=== PATIENT | male | born 1980 | race African-American/Black ===

== ENCOUNTER 2020-06-15 13:23 | Emergency (ER) | payer OTHER ==
[~2020-06-15] VITALS: Ht 185.4 cm; Wt 106.6 kg
[~2020-06-15 13:23] MED LIST: DILANTIN100 MG PO; KEFLEX500 MG PO
[2020-06-15 14:12] LABS: ABSOLUTE NEUTROPHILS 11.8 thou/uL (1.4-8.2); BASOPHILS 0.5 % (0.0-2.0); EOSINOPHILS 0.1 % (0.0-3.0); HEMATOCRIT 48.1 % (42.0-52.0); HEMOGLOBIN 16.1 gm/dL (14.0-18.0); LYMPHOCYTES 10.1 % (24.0-44.0); MCHC 33.4 g/dL (28.0-37.0); MCV 95.9 fL (80.0-100.0); MONOCYTES 9.3 % (1.0-8.0); PLATELET COUNT 291 thou/uL (150-400); RBC 5.02 mil/uL (4.50-6.00); RDW 14.7 % (10.5-14.5); WBC 14.8 thou/uL (4.0-11.0)
[2020-06-15 14:16] LABS: URINE BILIRUBIN NEGATIVE (Negative); URINE BLOOD 2+ (Negative); URINE CLARITY CLEAR; URINE COLOR YELLOW; URINE GLUCOSE-RANDOM* NEGATIVE (Negative); URINE KETONES 2+ (Negative); URINE LEUKOCYTES-REFLEX NEGATIVE (Negative); URINE NITRITE-REFLEX NEGATIVE (Negative); URINE PROTEIN (DIPSTICK) 1+ (Negative); URINE SPECIFIC GRAVITY >= 1.030 (1.005-1.035); URINE UROBILINOGEN 0.2 E.U./dl (0.2-1.0)
[2020-06-15 14:18] LABS: CALCIUM 8.9 mg/dL (8.5-10.1); CREATININE 1.6 mg/dL (0.7-1.3); POTASSIUM 3.7 mmol/L (3.5-5.1)
[2020-06-15 14:25] LABS: ALBUMIN 3.7 g/dL (3.4-5.0); TOTAL BILIRUBIN 0.3 mg/dL (0.2-1.0); TOTAL PROTEIN 7.4 g/dL (6.4-8.2)
[2020-06-15 14:25] LABS: AMP/METHAMP Negative (Negative); BARBITURATES Negative (Negative); BENZODIAZEPINES Negative (Negative); COCAINE Negative (Negative); METHADONE Negative (Negative); OPIATES Negative (Negative); PCP Negative (Negative)
[2020-06-15 14:35] LABS: SQUAMOUS 0-3 Few /LPF (0-3)
[2020-06-15 14:36] LABS: HYALINE CASTS 0-3 Few /LPF (None Seen); MUCUS 0-3 Light strn/LPF (None Seen); URINE WBC-REFLEX 0-5 Rare /HPF (0-5)
[2020-06-15 14:37] LABS: BACTERIA-REFLEX 1-9 Few /HPF (None Seen); CRYSTALS None Seen /LPF (None Seen); URINE RBC 3-10 Few /HPF (0-2)
[2020-06-15] MEDS ORDERED: LIDOCAINE VISC100 ML SWISH&SPIT (16:03)
[2020-06-15] MEDS ORDERED: VIMPAT200 MG PO (16:03)
[2020-06-15] MEDS ORDERED: KEPPRA1000 MG PO (16:03)
[2020-06-15 17:30] VITALS: BP 128/82
--- NOTE | 2020-06-17 07:23 | EKG ---
[place] [address] [facility] [place] [address] ELECTROCARDIOGRAM REPORT Name: DAMIEN VASQUEZ Room #: [id number] Admission: 06/15/20 Attend Phys: Discharge: 06/15/20 Date of : 82 Report #: [id number] [facility] Test Date: 2020-06-15 Test Time: 13:35:40 Pat Name: DAMIEN VASQUEZ Department: Room: Gender: M Personal Coach: SARA : 1980 Requested By: Raymond Sanz Order Number: [id number] MD: Jamil Moscoso Measurements Intervals Distant Rate: 93 P: 63 AR: 160 QRS: 78 QRSD: 91 T: 45 QT: 373 QTc: 464 Interpretive Statements Sinus rhythm Baseline wander in lead(s) V2 No previous ECG available for comparison Electronically Signed On 06-17-2020 7:23:09 CDT by Jamil Moscoso [email or web address] <ELECTRONICALLY SIGNED> By: Jamil Moscoso MD, [facility] 06/17/20 0723 1335 1335 Jamil Moscoso MD, FACC /EPI
== END 2020-06-15 17:34 | disposition home or self-care (01) ==
LOC: ER 13:23
PROVIDERS: Physician Assistant
DX: R56.9 Unspecified convulsions (principal); Z79.899 Other long term (current) drug therapy